=== PATIENT | male | born 1990 | race Caucasian/White ===

== ENCOUNTER 2019-11-04 17:03 | Emergency (ER) | payer BC, OTHER ==
[~2019-11-04] VITALS: Ht 172.7 cm; Wt 83.9 kg
[2019-11-04 17:08] VITALS: BP 115/61
--- NOTE | 2019-11-04 17:10 | NUR ---
PT AMBULATED TO [facility]
--- NOTE | 2019-11-04 17:11 | NUR ---
28 Y/O M C/C HICCUPS X 3 DAYS. PER PT NO HX OF CONTINOUS HICCUPS. PT PRESENTS IN NO RESPIRATORY DISTRESS, VSS, EUPNIC, AMBULATORY, A/OX4. NKA. NO HX. NO RX. NO NVD. AMBULATED TO CHAIR A
--- NOTE | 2019-11-04 17:22 | NUR ---
DR DIAMOND AT [facility] EXAMINING PT
--- NOTE | 2019-11-04 17:48 | NUR ---
GUSTAVO Jeffery INFORMED OF ORDERED MEDICATION NOT AVAILABLE, THORAZINE. PHARMACY CALLED ER TO NOTIFY.
--- NOTE | 2019-11-04 18:03 | NUR ---
PT MOVED TO [facility] BED C.
[2019-11-04] MEDS: chlorproMAZINE 25 MG/ML AMP IM ONE (18:04)
[2019-11-04] MEDS: METOCLOPRAMIDE 10 MG/2 ML INJ VIAL IVP ONE (18:22)
--- NOTE | 2019-11-04 19:04 | NUR ---
PT RESTING IN BED, SIDE RAIL X1.
--- NOTE | 2019-11-04 19:06 | NUR ---
REPORT GIVEN TO SHELL TAVERA FOR CONTINUITY OF CARE
[2019-11-04 19:16] VITALS: BP 115/61
--- NOTE | 2019-11-04 19:16 | NUR ---
Patient discharged with v/s stable. Written and verbal after care instructions given and explained. Patient verbalized understanding. Ambulatory with steady gait. All questions addressed prior to discharge. Advised to follow up with PMD.
== END 2019-11-04 19:16 | disposition home or self-care (01) ==
LOC: MED 17:03
DX: R06.6 Hiccough (principal)
CPT/HCPCS: 70450; 71250; 96374; 99285; J2765; J3230